=== PATIENT | male | born 1965 | race Caucasian/White ===

== ENCOUNTER 2024-12-19 10:37 | Emergency (ER) | payer SELFPAY ==
[2024-12-19 10:47] VITALS: BP 183/115; PULSE 65; RESP 17; TEMP 37; O2SAT 97; BMI 34.0
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
[2024-12-19 12:21] VITALS: BP 192/109; PULSE 65; O2SAT 97
== END 2024-12-19 12:23 | disposition home or self-care (01) ==
PROVIDERS: Emergency Provider Emergency Medicine
DX: S00.83XA Contusion of other part of head, initial encounter (principal); S13.4XXA Sprain of ligaments of cervical spine, initial encounter; S00.03XA Contusion of scalp, initial encounter; V86.59XA Driver of other special all-terrain or other off-road motor vehicle injured in nontraffic accident, initial encounter
CPT/HCPCS: 70450; 70486; 72125; 99284